=== PATIENT | female | born 1995 | race Caucasian/White ===

== ENCOUNTER 2022-03-08 01:18 | Emergency (ER) | payer MEDICAID, SELFPAY ==
[2022-03-08] VITALS (88 sets, daily range): BP systolic 98–118; BP diastolic 52–83; PULSE 55–88; RESP 12–30; TEMP 36.7; O2SAT 100; BMI 44.2
--- NOTE | 2022-03-08 00:45 | RT.EKG_ITS ---
APPROVED REPORT Exam: Resting ECG Reason for Exam: chest pain Patient Location: E HR:77 bpm ECG Measurements Heart Rate 77 AXIS TN 175 P -21 QRSd 102 QRS -19 QT 413 T 4 QTc 469 Conclusion Sinus rhythm...normal P axis, V-rate 60- 99 Low voltage, precordial leads...precordial leads <1.0mV Nonspecific T abnrm, anterolateral leads...T <-0.10mV, I aVL V2-V6 Physician: inverted t waves in anterior leads. no stemi
--- NOTE | 2022-03-08 01:09 | DI.CT_ITS ---
Exam(s) CT THORAX ABD/PEL CTA EXAM: CT THORAX ABD/PEL CTA CLINICAL HISTORY: hx AAA, and coarc. aorta, now chest pain/back pain. TECHNIQUE: Imaging Protocol: Axial computed tomography images with coronal and sagittal reformatted images were created and reviewed CONTRAST MATERIAL: Intravenous: Omnipaque 350 Contrast volume:100 ml Oral: None COMPARISON: No exams were available for comparison FINDINGS: CHEST: AORTA: The diameter of the ascending thoracic aorta is within normal limits, measuring 3.[address] of the aortic arch and descending thoracic aorta also within normal limits. No dissection or per icardial effusion. Incidentally noted is an aberrant right subclavian artery which is manifest as th e most distal vessel off the left-sided aortic arch and attains the right-side bypassing between the posterior aspect of the esophagus and anterior aspect of upper thoracic vertebral body. No significa nt stenosis nor aneurysm in this aberrant right subclavian artery. Descending thoracic aorta exhibits upper normal diameter. Diameter of the abdominal aorta is also no rmal and without atherosclerotic involvement. Aortic bifurcation appears unremarkable. No aneurysm nor significant stenosis evident in the iliac vessels nor in the common femoral arteries. Celiac and superior mesenteric arteries are nicely patent as is the inferior mesenteric artery. No s ignificant stenosis at the origin of the renal arteries nor along their course and there is no eviden ce of fibromuscular dysplasia of the renal arteries. LUNGS: Both lungs are clear. No infiltrates nor pleural effusions. No significant nodules.. MEDIASTINUM: There is no hilar nor mediastinal adenopathy. CARDIAC: There are sternotomy wires which appear to have been placed during childhood. Heart size is upper normal. There is no pericardial effusion. AORTA: See above discussion.There is no evidence of aortic dissection. ABDOMEN: There is no evidence of abdominal aortic aneurysm nor dissection.There is no aneurysmal dilatation of the common iliac arteries.The celiac and superior mesenteric arteries are patent. There is no ascites. LIVER: There are no focal hepatic lesions nor dilatation of intrahepatic ducts. GALLBLADDER/BILIARY: Slightly distended. No radiopaque gallstones noted. No pericholecystic fluid. CBD is not dilated. PANCREAS: No evidence of pancreatic mass nor dilatation of the pancreatic duct. SPLEEN: Spleen is not enlarged. There are no intrasplenic lesions. Splenic and portal veins are rodas nt. ADRENALS: There are no significant adrenal masses. KIDNEYS: No cysts evident. No calculi nor hydronephrosis. No solid renal masses. ABDOMINAL AORTA: The abdominal aorta is not enlarged. LYMPH NODES: There is no retroperitoneal nor para-aortic adenopathy. No obvious mesenteric masses. ABDOMINAL WALL: No evidence of significant anterior abdominal wall hernia. GI: There is no evidence of bowel obstruction, free air, nor abscess. PELVIS: LYMPH NODES: There is no intrapelvic nor inguinal adenopathy. GI: Appendix surgically absent.No evidence of sigmoid diverticulitis. URINARY BLADDER: No calculi nor masses evident REPRODUCTIVE: Uterus and adnexal regions appear age-appropriate. OSSEOUS: No significant osseous lesions. IMPRESSION: 1. There is an aberrant right subclavian artery noted. No other significant aortic findings. Diamet er of the ascending thoracic aorta is normal and there is no evidence of dissection in this patient w ho has had prior pediatric age cardiac surgery.. 2. Slight distension of the gallbladder noted. No obvious radiopaque calculi. If clinically indicat ed follow-up gallbladder ultrasound can be performed for added sensitivity. 3. The appendix is surgically absent. RADIATION DOSE DELIVERED: 1,361.09mGy.cm Total DLP DATA REPOSITORY: All CT scans at this facility are submitted to the National Radiology Data Registry (NRDR) Dose Index Registry (DIR) with the [employer] (ACR). RADIATION OPTIMIZATION: All CT scans at this facility use at least one of these dose optimization te chniques: automated exposure control; mA and/or kV adjustment per patient size (includes targeted exa ms where dose is matched to clinical indication); or iterative reconstruction.
[2022-03-08] MEDS: Omnipaque 350 MG/ML 100 ML BTL IJ (01:20)
[2022-03-08] MEDS: Ondansetron 4 MG/2 ML VIAL IVP (01:37)
[2022-03-08] MEDS: Normal Saline 500 ML IV (01:37)
[2022-03-08 01:43] LABS: ALT 22 U/L (14-59); AST 17 U/L (15-37); Albumin 3.9 g/dL (3.4-5.0); Alkaline Phosphatase 92 U/L (46-116); Anion Gap 9.4 mmol/L (3-11); BUN 13 mg/dL (7-18); Bilirubin, Total 0.5 mg/dL (0.2-1.0); CO2 24.6 mmol/L (21.0-32.0); CREATININE 0.9 mg/dL (0.55-1.02); Calcium 9.1 mg/dL (8.5-10.1); Chloride 103 mmol/L (98-107); Glucose 108 mg/dL (74-106); Lipase 134 U/L (73-393); NT-proBNP 48 pg/mL (<300); Potassium 3.5 mmol/L (3.5-5.1); Sodium 137 mmol/L (136-145); Total Protein 8.2 g/dL (6.4-8.2); Troponin I < 50 ng/L (<or=60)
[2022-03-08] MEDS: Normal Saline - Diluent 50 ML VIAL IJ (01:47)
[2022-03-08] MEDS: Normal Saline Flush 10 ML SYR IVP (01:47)
--- NOTE | 2022-03-08 01:48 | ED.GENADUL_ITS ---
Discharge Plan Discharge Details Chief Complaint: Chest Pain Primary Care Provider: Molly Streeter ED Provider: Fran Jara Home Meds and New Rx's Prescriptions: No Action No Known Home Meds Medical Decision Making This is a pleasant 26-year-old female with a past medical history of thoracic aortic aneurysm, aortic regurg due to bicuspid aortic valve, aortic root dilatation, coarctation of the aorta and VSD which were repaired at [facility] on the patient was a child, whose house is currently out of power and so she is visiting a friend. She presents [facility] for evaluation of chest pain. She states that about 2 hours prior to arrival she was awoken out of sleep with chest pain which she describes as a pressure and tightness like sensation going from her anterior breast all the way to her mid to lower back. She has been carrying her 1-year-old that is 40 pounds per the patient. She does admit to some tightness while breathing, and some worsening of pain with this. She denies having symptoms like this before. She denies any vomiting or diarrhea. She describes the pain as a 7 out of 10 at this time. No other complaints at this time. No other modifying factors. Physical exam demonstrates well-appearing female, peripheral pulses are +2 in all extremities. Vital signs are stable. Patient does not want anything for pain at this time. She does want something for nausea though. There may certainly be a musculoskeletal component with the stress and strain of caring her child around, however with her history there is certainly a strong concern for potential cardiac or aortic etiology. We will get a CTA, monitor closely and reassess. Patient did receive 325 of aspirin via EMS prior to arrival. 3:39 AM On reassessment patient is feeling better. She still has mild right lower abdominal pain. Troponin proBNP lipase white count electrolytes are all normal. Repeat exam continues to show mild right mid to lower quadrant abdominal pain and resolution of her chest and back pain. CT scan shows no evidence of dissection or aneurysm, however there is evidence of drainage pericholecystic stranding. Symptoms do not appear overly consistent with cholecystitis. No guarding or rebound, negative Guzman sign. Out of an abundance of precaution we will get an ultrasound of the right upper quadrant for further assessment of the gallbladder. No electroencephalographic technologist is on currently, however 1 can be called in in the morning. We will continue to monitor the patient here this evening. FINDINGS: VASCULATURE: Pulmonary arteries: Normal. No pulmonary emboli. Aorta: No aortic aneurysm. No aortic dissection. Celiac trunk and mesenteric arteries: No occlusion or significant stenosis. Renal arteries: No occlusion or significant stenosis. Right iliac arteries: No occlusion or significant stenosis. Left iliac arteries: No occlusion or significant stenosis. CHEST: Lungs: Unremarkable. No consolidation. No masses. Pleural spaces: Unremarkable. No pneumothorax. No pleural effusion. Heart: Unremarkable. No cardiomegaly. No pericardial effusion. ABDOMEN AND PELVIS: Liver: Suspect element of hepatic steatosis. Gallbladder and bile ducts: Trace pericholecystic stranding, recommend clinical exclusion of cholecystitis with sonogram for further evaluation as clinically warranted. Pancreas: Unremarkable. No mass. No ductal dilation. Spleen: Unremarkable. No splenomegaly. Adrenal glands: Unremarkable. No mass. Kidneys and ureters: Unremarkable. No solid mass. No hydronephrosis. Stomach and bowel: Unremarkable. No obstruction. No mucosal thickening. Appendix: No evidence of appendicitis. Intraperitoneal space: Unremarkable. No free air. No significant fluid collection. Urinary bladder: Unremarkable. No mass. Reproductive: Unremarkable as visualized. Lymph nodes: Unremarkable. No enlarged lymph nodes. Bones/joints: Unremarkable. No acute fracture. Soft tissues: Unremarkable. IMPRESSION: Trace pericholecystic stranding, recommend clinical exclusion of cholecystitis with sonogram for further evaluation as clinically warranted. Thank you for allowing us to participate in the care of your patient. Dictated and Authenticated by: Sabas Jay MD 03/08/2022 2:24 AM Eastern Time ([place] & [place]) HPI General Date/Time Provider Initiated Documentation: 03/08/22 01:44 . HPI Narrative: This is a pleasant 26-year-old female with a past medical history of thoracic aortic aneurysm, aortic regurg due to bicuspid aortic valve, aortic root dilatation, coarctation of the aorta and VSD which were repaired at [facility] on the patient was a child, whose house is currently out of power and so she is visiting a friend. She presents tonight for evaluation of chest pain. She states that about 2 hours prior to arrival she was awoken out of sleep with chest pain which she describes as a pressure and tightness like sensation going from her anterior breast all the way to her mid to lower back. She has been carrying her 1-year-old that is 40 pounds per the patient. She does admit to some tightness while breathing, and some worsening of pain with this. She denies having symptoms like this before. She denies any vomiting or diarrhea. She describes the pain as a 7 out of 10 at this time. No other complaints at this time. No other modifying factors. Related Data Home Medications Medication Instructions Recorded Confirmed Unknown [No Known Home Meds] 03/08/22 03/08/22 Allergies Allergy/AdvReac Type Severity Reaction Status Date / Time No Known Allergies Allergy Unverified 03/08/22 01:06 General Stated Complaint: Chest Pain DE: 2 Review of Systems All systems reviewed & are unremarkable except as noted in HPI and below PFSH Social History Smoking/Tobacco Use Status: Never Smoking risk assessment performed?: Yes Alcohol Intake: never Substance use type: does not use Do you feel safe at home: Yes Do you feel safe in your relationship?: Yes Exam Narrative Exam Narrative: 1.Const: Well-nourished, Well-developed, appearing stated age 2.Eyes: PERRL, no conjunctival injection, and symmetrical lids. 3.ENT: Atraumatic external nose and ears. Moist MM. Neck: Symmetric, trachea midline, No thyromegaly. 4.CVS: +S1/S2,Peripheral pulses 2+ and equal in all extremities. Brisk capillary refill in all extremities. 5.RESP: Unlabored respiratory effort. Clear to auscultation bilaterally. No wheezes rales or rhonchi 6.GI: Soft, Nontender/Nondistended, No hepatosplenomegaly. No guarding or rebound. 7.MSK: Normocephalic/Atraumatic, Extremities w/o deformity or ttp No cyanosis or clubbing, Normal movement of all extremities 8.Skin: Warm, Dry. No rashes or lesions. 9.Neuro: keg raiser II-XII grossly intact. Sensation grossly intact, no focal neurologic deficits. 10.Psych: (AAO) x3. Appropriate mood and affect Course Vital Signs Vital signs: Vital Signs Temperature 36.7 C 03/08/22 00:57 Pulse 80 03/08/22 00:57 Respiratory Rate 19 03/08/22 00:57 Pulse Oximetry 100 03/08/22 00:57 Temperature 36.7 C 03/08/22 00:57 Pulse 80 03/08/22 00:57 Respiratory Rate 16 03/08/22 01:09 Respiratory Effort 03/08/22 01:09 Respiratory Depth Normal 03/08/22 01:09 Respiratory Pattern Normal 03/08/22 01:09 Pulse Oximetry 100 03/08/22 00:57 Pain Level 7 03/08/22 00:57 Lab/Test Results Lab/Test Results: Laboratory Tests Range/Units 03/08/22 01:16 Sodium (136-145) mmol/L 137 Potassium (3.5-5.1) mmol/L 3.5 Chloride (98-107) mmol/L 103 Carbon Dioxide (21.0-32.0) mmol/L 24.6 Anion Gap (3-11) mmol/L 9.4 BUN (7-18) mg/dL 13 Creatinine (0.55-1.02) mg/dL 0.9 Est GFR (CKD-EPI 2020) (mL/min/1.73m2) 89.30 Glucose (74-106) mg/dL 108 H Calcium (8.5-10.1) mg/dL 9.1 Total Bilirubin (0.2-1.0) mg/dL 0.5 AST (15-37) U/L 17 ALT (14-59) U/L 22 Alkaline Phosphatase (46-116) U/L 92 Troponin I (<or=60) ng/L < 50 NT-Pro-B Natriuret Pep (<300) pg/mL 48 Total Protein (6.4-8.2) g/dL 8.2 Albumin (3.4-5.0) g/dL 3.9 Lipase (73-393) U/L 134
--- NOTE | 2022-03-08 02:25 | DI.VRAD_ITS ---
PROCEDURE INFORMATION: Exam: CTA Chest With Contrast CTA Abdomen and Pelvis With Contrast Exam date and time: 03/08/2022 1:34 AM Age: 26 years old Clinical indication: Precordial pain; Prior surgery; Surgery date: 6+ months; Surgery type: and removal of fallopian tubes; Patient HX: HX aaa, and coarc. Aorta, now chest pain/back pain TECHNIQUE: Imaging protocol: Computed tomographic angiography of the chest with contrast. Computed tomographic angiography of the abdomen and pelvis with contrast. 3D rendering (Not supervised by radiologist): MIP and/or 3D reconstructed images were created by the technologist. Radiation optimization: All CT scans at this facility use at least one of these dose optimization techniques: automated exposure control; mA and/or kV adjustment per patient size (includes targeted exams where dose is matched to clinical indication); or iterative reconstruction. Contrast material: OMNIPAQUE 350; Contrast volume: 100 ml; Contrast route: INTRAVENOUS (IV); COMPARISON: No relevant prior studies available. FINDINGS: VASCULATURE: Pulmonary arteries: Normal. No pulmonary emboli. Aorta: No aortic aneurysm. No aortic dissection. Celiac trunk and mesenteric arteries: No occlusion or significant stenosis. Renal arteries: No occlusion or significant stenosis. Right iliac arteries: No occlusion or significant stenosis. Left iliac arteries: No occlusion or significant stenosis. CHEST: Lungs: Unremarkable. No consolidation. No masses. Pleural spaces: Unremarkable. No pneumothorax. No pleural effusion. Heart: Unremarkable. No cardiomegaly. No pericardial effusion. ABDOMEN AND PELVIS: Liver: Suspect element of hepatic steatosis. Gallbladder and bile ducts: Trace pericholecystic stranding, recommend clinical exclusion of cholecystitis with sonogram for further evaluation as clinically warranted. Pancreas: Unremarkable. No mass. No ductal dilation. Spleen: Unremarkable. No splenomegaly. Adrenal glands: Unremarkable. No mass. Kidneys and ureters: Unremarkable. No solid mass. No hydronephrosis. Stomach and bowel: Unremarkable. No obstruction. No mucosal thickening. Appendix: No evidence of appendicitis. Intraperitoneal space: Unremarkable. No free air. No significant fluid collection. Urinary bladder: Unremarkable. No mass. Reproductive: Unremarkable as visualized. Lymph nodes: Unremarkable. No enlarged lymph nodes. Bones/joints: Unremarkable. No acute fracture. Soft tissues: Unremarkable. IMPRESSION: Trace pericholecystic stranding, recommend clinical exclusion of cholecystitis with sonogram for further evaluation as clinically warranted. Dictated and Authenticated by: Sabas Jay MD. Ordering:HEAVEN Peters MD
[2022-03-08 02:31] LABS: Bilirubin Negative (Negative); Blood Negative (Negative); Clarity Clear (Clear); Glucose Negative (Negative); Ketones Negative (Negative); Leukocyte Esterase Negative (Negative); Nitrite Negative (Negative); Urobilinogen 0.2 EU/dL (Up TO 0.2)
[2022-03-08 02:41] LABS: Bacteria Rare HPF (Negative); C & S Indicated? No; Crystals Negative HPF (Negative); Epithelial Cells Many HPF (Negative); Mucus Negative (Negative); RBC 0-2 HPF (0-2); WBC Negative HPF (0-5)
[2022-03-08] MEDS: Ketorolac 30 MG/ML VIAL IVP (03:30)
--- NOTE | 2022-03-08 03:30 | DI.US_ITS ---
Exam(s) US ABDOMEN LIMITED EXAM: US ABDOMEN LIMITED CLINICAL HISTORY: eval ruq for GB pathology TECHNIQUE: Ultrasound abdomen performed using standard protocol. COMPARISON: CT CT THORAX ABD/PEL CTA from 03/08/2022 FINDINGS: There is no ascites evident. LIVER: There are no hepatic lesions evident nor dilatation of intrahepatic ducts. GALLBLADDER/BILIARY: There are few echogenic foci within the gallbladder lumen which were not demonst rated to be mobile. Largest of these measures 4 millimeters. Gallbladder wall is slightly thickened . There is no pericholecystic fluid. The common hepatic duct isnot dilated, measuring 6mm at the level of krysten hepatis. PANCREAS: There is no evidence of pancreatic mass nor dilatation of the pancreatic duct. RIGHT KIDNEY:No evidence of solid mass, calculus, nor hydronephrosis. No cortical cysts evident. IMPRESSION: 1. Cholelithiasis. There are multiple small shadowing gallstones in the gallbladder lumen. Gallbla dder wall appears slightly thickened. There is no pericholecystic fluid. Common hepatic duct diamet er is upper normal. Patient was apparently not tender over the gallbladder during scanning today. 2. No other significant ultrasound findings in the right upper quadrant. 3. There is no ascites. DATA REPOSITORY:
[2022-03-08 04:04] LABS: Abs Immature Grans 0.04 10^3/uL (0.0-0.06); Absolute Basophil Count 0.03 10^3/uL (0.0-0.2); Absolute Eosinophil Count 0.44 10^3/uL (0.0-0.7); Absolute Lymphocyte Count 1.29 10^3/uL (1.2-3.4); Absolute Monocyte Count 0.61 10^3/uL (0.1-0.8); Basophils % 0.3; Eosinophils % 4.2; HCT 42.1 % (36.0-46.0); HGB 13.5 g/dL (11.2-15.7); Immature Grans % 0.4; Lymphocytes % 12.3; MCHC 32.1 % (32.0-36.0); MCV 84 fL (80-95); MPV 9.9 fL (8.0-11.0); Monocytes % 5.8; Platelet Count 323 10^3/uL (130-400); RDW 12.9 % (11.7-14.6); RDW-SD 39.4 fL; WBC 10.51 10^3/uL (4.4-10.8)
[2022-03-08 04:30] LABS: Troponin I < 50 ng/L (<or=60)
[2022-03-08] MEDS: ACETAMINOPHEN 1,000 MG/100 ML BTL 400 MG IVPB (07:16)
--- NOTE | 2022-03-08 08:47 | DI.VRAD_ITS ---
PROCEDURE INFORMATION: Exam: US Abdomen, Limited; Right Upper Quadrant Exam date and time: 03/08/2022 8:28 AM Age: 26 years old Clinical indication: Other: Back pain TECHNIQUE: Imaging protocol: Real time ultrasound of the abdomen with image documentation. Limited exam focused on the right upper quadrant. COMPARISON: CT THORAX ABD/PEL CTA 03/08/2022 1:34 AM FINDINGS: Liver: Normal. No masses. Liver length is 16 0.6 cm.There is hepatopetal flow in the main portal vein. Gallbladder: Gallbladder wall is thickened up to 5 mm and there are multiple stones in the gallbladder, but no gallbladder wall hyperemia. Biliary ducts: Common bile duct measures 6 mm. No stones. Pancreas: Visualized pancreas is unremarkable. Right kidney: Normal. No mass. No hydronephrosis. IMPRESSION: Cholelithiasis and gallbladder wall thickening, without other definite the a graphic findings of acute cholecystitis. Slightly prominent common bile duct without visualized obstructing stones. No other acute abnormality. Dictated and Authenticated by: Roz El MD. Ordering:HEAVEN Peters MD
--- NOTE | 2022-03-08 09:03 | ED.PROG_ITS ---
Date of service: 03/08/22 Time of Service: 09:05 Medical Decision Making There was signed out by Dr. Jara. Please see his documentation regarding initial ED presentation course. Plan at signout was to follow-up on abdominal ultrasound. CTA of the thorax was interpreted by radiology: IMPRESSION: Trace pericholecystic stranding, recommend clinical exclusion of cholecystitis with sonogram for further evaluation as clinically warranted. Ultrasound of the abdomen was interpreted by radiology: IMPRESSION: Cholelithiasis and gallbladder wall thickening, without other definite the a graphic findings of acute cholecystitis.? Slightly prominent common bile duct without visualized obstructing stones.? No other acute abnormality. Labs reviewed and LFTs normal. Lipase normal. Patient reassessed and abdominal exam is benign. She notes pain resolved. I called and spoke with surgeon on-call, Dr. Soliman, discussed ED presentation course. He evaluated the patient and recommends cholecystectomy. Anesthesia is not comfortable treating patient here given cardiac history. Patient was given Zosyn 4.5 g IV as recommended by Dr. Mckeon. -- I called [facility] transfer center to request transfer and this was kind due to lack of capacity to accept the patient. -- I then called [facility] transfer center to request transfer. Delay while waiting for return call. Dr. Aviles returned my call, on-call surgeon, discussed ED presentation and course, he will except the patient in transfer and requests I speak to the ED attending to accept. I spoke with Dr. Roe in the emergency department, again discussed ED presentation course, he will accept patient. We will arrange for transportation. Lab Data Lab results reviewed: Yes I reviewed the patient's lab results. Labs: Laboratory Tests Range/Units 03/08/22 03/08/22 03/08/22 01:16 01:16 02:25 WBC (4.4-10.8) 10^3/uL 10.51 RBC (3.93-5.22) 10^6/uL 5.00 Hgb (11.2-15.7) g/dL 13.5 Hct (36.0-46.0) % 42.1 MCV (80-95) fL 84 MCH (27.0-33.0) pg 27.0 MCHC (32.0-36.0) % 32.1 RDW (11.7-14.6) % 12.9 Plt Count (130-400) 10^3/uL 323 MPV (8.0-11.0) fL 9.9 Immature Gran % 0.4 Neutrophils % 77.0 Lymphocytes % 12.3 Monocytes % 5.8 Eosinophils % 4.2 Basophils % 0.3 Nucleated RBC % (0.0-0.3) % 0.0 Absolute Neutrophils (1.2-6.7) 10^3/uL 8.10 H Absolute Lymphocytes (1.2-3.4) 10^3/uL 1.29 Absolute Monocytes (0.1-0.8) 10^3/uL 0.61 Absolute Eosinophils (0.0-0.7) 10^3/uL 0.44 Absolute Basophils (0.0-0.2) 10^3/uL 0.03 Sodium (136-145) mmol/L 137 Potassium (3.5-5.1) mmol/L 3.5 Chloride (98-107) mmol/L 103 Carbon Dioxide (21.0-32.0) mmol/L 24.6 Anion Gap (3-11) mmol/L 9.4 BUN (7-18) mg/dL 13 Creatinine (0.55-1.02) mg/dL 0.9 Est GFR (CKD-EPI 2020) (mL/min/1.73m2) 89.30 Glucose (74-106) mg/dL 108 H Calcium (8.5-10.1) mg/dL 9.1 Total Bilirubin (0.2-1.0) mg/dL 0.5 AST (15-37) U/L 17 ALT (14-59) U/L 22 Alkaline Phosphatase (46-116) U/L 92 Troponin I (<or=60) ng/L < 50 NT-Pro-B Natriuret Pep (<300) pg/mL 48 Total Protein (6.4-8.2) g/dL 8.2 Albumin (3.4-5.0) g/dL 3.9 Lipase (73-393) U/L 134 Urine Color (Yellow) Yellow Urine Clarity (Clear) Clear Urine pH (5-8) 6.0 Ur Specific [place] (1.005-1.025) 1.010 Urine Protein (Negative) mg/dL Trace H Urine Ketones (Negative) mg/dL Negative Urine Blood (Negative) Negative Urine Nitrite (Negative) Negative Urine Bilirubin (Negative) Negative Urine Urobilinogen (Up TO 0.2) EU/dL 0.2 Ur Leukocyte Esterase (Negative) Negative Urine RBC (0-2) HPF 0-2 Urine WBC (0-5) HPF Negative Ur Epithelial Cells (Negative) HPF Many Urine Crystals (Negative) HPF Negative Urine Bacteria (Negative) HPF Rare Urine Mucus (Negative) Negative Ur Culture Indicated? No Urine Glucose (Negative) mg/dL Negative Range/Units 03/08/22 04:07 WBC (4.4-10.8) 10^3/uL RBC (3.93-5.22) 10^6/uL Hgb (11.2-15.7) g/dL Hct (36.0-46.0) % MCV (80-95) fL MCH (27.0-33.0) pg MCHC (32.0-36.0) % RDW (11.7-14.6) % Plt Count (130-400) 10^3/uL MPV (8.0-11.0) fL Immature Gran % Neutrophils % Lymphocytes % Monocytes % Eosinophils % Basophils % Nucleated RBC % (0.0-0.3) % Absolute Neutrophils (1.2-6.7) 10^3/uL Absolute Lymphocytes (1.2-3.4) 10^3/uL Absolute Monocytes (0.1-0.8) 10^3/uL Absolute Eosinophils (0.0-0.7) 10^3/uL Absolute Basophils (0.0-0.2) 10^3/uL Sodium (136-145) mmol/L Potassium (3.5-5.1) mmol/L Chloride (98-107) mmol/L Carbon Dioxide (21.0-32.0) mmol/L Anion Gap (3-11) mmol/L BUN (7-18) mg/dL Creatinine (0.55-1.02) mg/dL Est GFR (CKD-EPI 2020) (mL/min/1.73m2) Glucose (74-106) mg/dL Calcium (8.5-10.1) mg/dL Total Bilirubin (0.2-1.0) mg/dL AST (15-37) U/L ALT (14-59) U/L Alkaline Phosphatase (46-116) U/L Troponin I (<or=60) ng/L < 50 NT-Pro-B Natriuret Pep (<300) pg/mL Total Protein (6.4-8.2) g/dL Albumin (3.4-5.0) g/dL Lipase (73-393) U/L Urine Color (Yellow) Urine Clarity (Clear) Urine pH (5-8) Ur Specific [place] (1.005-1.025) Urine Protein (Negative) mg/dL Urine Ketones (Negative) mg/dL Urine Blood (Negative) Urine Nitrite (Negative) Urine Bilirubin (Negative) Urine Urobilinogen (Up TO 0.2) EU/dL Ur Leukocyte Esterase (Negative) Urine RBC (0-2) HPF Urine WBC (0-5) HPF Ur Epithelial Cells (Negative) HPF Urine Crystals (Negative) HPF Urine Bacteria (Negative) HPF Urine Mucus (Negative) Ur Culture Indicated? Urine Glucose (Negative) mg/dL Sign Out Sign Out Data: Sign Out Comment: Follow-up on ultrasound of gallbladder and reassessment. Last updated by Fran Jara DO at 03/08/22 07:46 Discharge Plan Disposition Patient Disposition: Transfer-Acute Inpatient Care Specific Acute Inpt Facility: [facility] Condition: Serious Discharge Details Clinical Impression: Cholelithiasis, Thickening of wall of gallbladder Primary Care Provider: Molly Streeter ED Provider: Keon Rivera Home Meds and New Rx's Prescriptions: No Action No Known Home Meds Discharge Instructions Referrals: Molly Streeter [Primary Care Provider] - Discharge Data Discharge Date/Time-TO BE ENTERED AT DEPARTURE: 03/08/22 15:16
--- NOTE | 2022-03-08 09:42 | W.SURGCON ---
Date of service: 03/08/22 Time of Service: 09:45 Assessment and Plan Assessment and plan (1) Cholecystitis: Status: Acute Assessment and plan: 26-year-old woman who incidentally has a complex, but stable and clinically irrelevant cardiac history who is having crescendo biliary colic in the setting of likely chronic cholecystitis at this point. She is hemodynamically stable and her lab work is normal and her abdominal exam is benign however the increasing frequency and severity of her attacks coupled with radiographic evidence of gallbladder inflammation(CT showing stranding and ultrasound showing gallbladder wall thickening and CBD dilation) all point towards the reality that she is passing gallstones on a regular basis as the explanation for her symptoms. This is a classic scenario of crescendo biliary colic and typical management strategies/recommendations for this are prompt/urgent laparoscopic cholecystectomy before this becomes a more complicated/emergent scenario with either severe acute cholecystitis or common bile duct obstruction. Sending her home with pain medication and antibiotics to plan for scheduled, elective procedure is well?documented in literature and in reality to actually result in recurrent ER admissions and surgery under less than ideal circumstances as the disease worsens. As such, it is my usual practice to recommend and perform surgery at this time. Considering the complex(albeit stable) cardiac history she has, I have asked anesthesia to come in and consult on the patient for risk stratification and assessment. This multi-disciplinary approach will allow us to decide the best management strategy for her and depending on our collaborative decision making, she may need to be transferred for surgery at a tertiary facility. I will defer to anesthesia consultation and their recommendations. Final thoughts are: Will be interesting if after her gallbladder is removed if her chronic chest and back discomfort that comes and goes randomly goes away completely because it may have been secondary to gallbladder disease all along. Overall plan/recommendations: Urgent Laparoscopic cholecystectomy History of Present Illness Narrative: The patient is a 26-year-old woman who comes in for moderate/severe back pain and pain underneath her right rib. This is not new for her and has happened about 5 or 6 times in the last 3 or 4 weeks. Prior to that it happened on an occasion once every couple of months. She does not attribute any inciting factors and this time she was in her sleep and it woke her up. She has never presented to the emergency department for this before however the difference this time was that this was the most severe it had ever been even though she recognized the pain. Historically these attacks of pain will always slowly go away and she says that the pain in her back usually takes about a day to go away. Again, because this was the most severe it has ever been she came to the emergency department for evaluation. She does have a history of chronic on/off chest discomfort and this has been an issue for her since she was a child as she had open heart surgery at the age of 2 days old. (Reportedly to repair coarctation of the aorta) Her verbal history she follows with cardiology every 6 months. She reports that everything has been stable from that perspective. Her last echo in the [facility] system is from 2-3 years ago showing an intact EF of 55%, mild?moderate aortic regurgitation, trace/mild mitral and tricuspid valve regurgitation. Dilated aortic root. She did recently have a stress test at [facility] that she self?reports was normal. She is due for routine/follow-up echo in 2022. Because of her history a CTA was performed which did not reveal any intrathoracic or obvious vascular problem. Stranding was seen around the gallbladder and a follow-up ultrasound was performed which demonstrated cholelithiasis as well as wall thickening(5mm) consistent radiographically with cholecystitis. Her common bile duct is mildly dilated at 6 mm. LFTs normal. Attack of pain was last night and at the bedside this morning she reports that all of the pain beneath her rib is gone but she still has the back pain. Medical history: Heart history as noted above and she is overweight Surgical history: Open heart surgery as noted above, laparoscopic appendectomy, C-sections x2 Social history: Not relevant Family history: Not relevant Allergies: None known Med: None reported PFSH All Active Problems (Updated 03/08/22 @ 10:25 by Akil Hernandez MD) Cholecystitis (Acute) Chest pain (Acute) Abdominal pain (Acute) Cholelithiasis (Acute) Thickening of wall of gallbladder (Acute) Social History Smoking/Tobacco Use Status: Never Smoking risk assessment performed?: Yes Alcohol Intake: never Substance use type: does not use Do you feel safe at home: Yes Do you feel safe in your relationship?: Yes Exam Narrative Exam Narrative: General: Nontoxic, comfortable and interactive. Unlabored breathing Neuro: Alert and oriented x3 Psych: Appropriate mood and affect, good insight and understanding into her condition Abdomen: The patient is overweight but her abdomen is soft, nondistended and grossly nontender. No appreciated Guzman sign on exam. Results Last Vital Signs Temp 98.1 F 03/08/22 00:57 Pulse 65 03/08/22 08:43 Resp 23 03/08/22 09:10 BP 102/71 03/08/22 08:43 Pulse Ox 100 03/08/22 00:57 Labs Result diagrams: 03/08/22 01:16 03/08/22 01:16 Labs: Laboratory Results - last 24 hr 03/08/22 03/08/22 03/08/22 01:16 01:16 02:25 WBC 10.51 RBC 5.00 Hgb 13.5 Hct 42.1 MCV 84 MCH 27.0 MCHC 32.1 RDW 12.9 Plt Count 323 MPV 9.9 Immature Gran % 0.4 Neutrophils % 77.0 Lymphocytes % 12.3 Monocytes % 5.8 Eosinophils % 4.2 Basophils % 0.3 Nucleated RBC % 0.0 Absolute Neutrophils 8.10 H Absolute Lymphocytes 1.29 Absolute Monocytes 0.61 Absolute Eosinophils 0.44 Absolute Basophils 0.03 Sodium 137 Potassium 3.5 Chloride 103 Carbon Dioxide 24.6 Anion Gap 9.4 BUN 13 Creatinine 0.9 Est GFR (CKD-EPI 2020) 89.30 Glucose 108 H Calcium 9.1 Total Bilirubin 0.5 AST 17 ALT 22 Alkaline Phosphatase 92 Troponin I < 50 NT-Pro-B Natriuret Pep 48 Total Protein 8.2 Albumin 3.9 Lipase 134 Urine Color Yellow Urine Clarity Clear Urine pH 6.0 Ur Specific [place] 1.010 Urine Protein Trace H Urine Ketones Negative Urine Blood Negative Urine Nitrite Negative Urine Bilirubin Negative Urine Urobilinogen 0.2 Ur Leukocyte Esterase Negative Urine RBC 0-2 Urine WBC Negative Ur Epithelial Cells Many Urine Crystals Negative Urine Bacteria Rare Urine Mucus Negative Ur Culture Indicated? No Urine Glucose Negative 03/08/22 04:07 WBC RBC Hgb Hct MCV MCH MCHC RDW Plt Count MPV Immature Gran % Neutrophils % Lymphocytes % Monocytes % Eosinophils % Basophils % Nucleated RBC % Absolute Neutrophils Absolute Lymphocytes Absolute Monocytes Absolute Eosinophils Absolute Basophils Sodium Potassium Chloride Carbon Dioxide Anion Gap BUN Creatinine Est GFR (CKD-EPI 2020) Glucose Calcium Total Bilirubin AST ALT Alkaline Phosphatase Troponin I < 50 NT-Pro-B Natriuret Pep Total Protein Albumin Lipase Urine Color Urine Clarity Urine pH Ur Specific [place] Urine Protein Urine Ketones Urine Blood Urine Nitrite Urine Bilirubin Urine Urobilinogen Ur Leukocyte Esterase Urine RBC Urine WBC Ur Epithelial Cells Urine Crystals Urine Bacteria Urine Mucus Ur Culture Indicated? Urine Glucose
[2022-03-08] MEDS: PIPERACILLIN/TAZO 4.5 GM in Normal Saline 100 ML IVPB (10:01)
--- NOTE | 2022-03-08 11:11 | W.ANESCON ---
General Date of Service Date of Service: 03/08/22 Reason for Consult Requesting Provider: Akil Hernandez How Consult Conducted:: Chart Review Reason for Consult:: Patient with cholecytitis per Lorna Hernandez. Dr. Hernandez reached out due to patients significant cardiac and cardiac surgical history and asked for anesthesia consultation. Consult Recommendation after Review:: Recommend this patient be transfered to a tertiary facility. Patient has significant pediatric cardiac surgical history, frequent chest pain, some LAD ischemia per 2019 Cardiac NM study, mild to moderate AR, EF 55%, possible PFO. BMI has elevated since previous studies and last from 39 to 44. I believe this patient will be better served at a facility with additional support and specialty services. Patient is agreeable to this plan. Discussed possibility of direct transfer to [facility] or a facility of her choice. All questions answered. Plan discussed with both Saadia Hernandez and Roger Rivera separately. Lorna Hernandez to go discuss next steps in care with Roger Rivera. Height: 5 ft 4 in Weight: 117 kg Body Mass Index (BMI): 44.2 Meds Allergies and Home Medications Allergies Allergy/AdvReac Type Severity Reaction Status Date / Time No Known Allergies Allergy Unverified 03/08/22 01:06 Home Medication Medication Instructions Recorded Unknown [No Known Home Meds] 03/08/22 Current Visit Medications: Current Medications Generic Name Dose Route Start Last Admin Trade Name Freq PRN Reason Stop Dose Admin Iohexol 100 ml 03/08/22 01:30 03/08/22 01:20 Omnipaque 350 Mg/Ml 100 Ml Btl IJ 04/07/22 23:59 100 ml DIRECTED [place] Administration Sodium Chloride 50 ml 03/08/22 02:00 03/08/22 01:47 Normal Saline - Diluent 50 Ml Vial IJ 50 ml .FOR DI USE [place] Administration Sodium Chloride 0 ml 03/08/22 01:47 03/08/22 01:47 Normal Saline Flush 10 Ml Syr IVP 10 ml PRN PRN Administration PFSH Active Problems Active Problems: Problem Status Onset Code Cholecystitis K81.9 Chest pain R07.9 Abdominal pain R10.9 Cholelithiasis K80.20 Thickening of wall of gallbladder K82.8 Tobacco Smoking/Tobacco Use Status: Never Alcohol Alcohol Intake: never Substance Use Substance use type: does not use Vital Signs & Lab Results Vital Signs Most Recent Vital Signs: Most Recent Vital Signs Temp Pulse Resp BP Pulse Ox 36.7 C 66 22 105/70 100 03/08/22 00:57 03/08/22 10:02 03/08/22 10:02 03/08/22 10:02 03/08/22 00:57 Point of Care Results Nursing Point of Care Results: No Data to Display Lab Results Result Diagrams: 03/08/22 01:16 03/08/22 01:16 Blood Type / Crossmatch: No Data to Display Complete Blood Count: White Blood Count 10.51 10^3/uL (4.4-10.8) 03/08/22 01:16 Red Blood Count 5.00 10^6/uL (3.93-5.22) 03/08/22 01:16 Hemoglobin 13.5 g/dL (11.2-15.7) 03/08/22 01:16 Hematocrit 42.1 % (36.0-46.0) 03/08/22 01:16 Platelet Count 323 10^3/uL (130-400) 03/08/22 01:16 Complete Metabolic Panel: Sodium 137 mmol/L (136-145) 03/08/22 01:16 Potassium 3.5 mmol/L (3.5-5.1) 03/08/22 01:16 Chloride 103 mmol/L (98-107) 03/08/22 01:16 Carbon Dioxide 24.6 mmol/L (21.0-32.0) 03/08/22 01:16 BUN 13 mg/dL (7-18) 03/08/22 01:16 Creatinine 0.9 mg/dL (0.55-1.02) 03/08/22 01:16 Est GFR (CKD-EPI 2020) 89.30 (mL/min/1.73m2) 03/08/22 01:16 Calcium 9.1 mg/dL (8.5-10.1) 03/08/22 01:16 Albumin 3.9 g/dL (3.4-5.0) 03/08/22 01:16 Glucose 108 mg/dL (74-106) H 03/08/22 01:16 Liver Function Panel: Alanine Aminotransferase (ALT/SGPT) 22 U/L (14-59) 03/08/22 01:16 Aspartate Amino Transf (AST/SGOT) 17 U/L (15-37) 03/08/22 01:16 Coagulation Panel: No Data to Display Cardiac Panel: Troponin I < 50 ng/L (<or=60) 03/08/22 NT-Pro-B Natriuret Pep 48 pg/mL (<300) 03/08/22 Arterial Blood Gas: No Data to Display Venous Blood Gas: No Data to Display Pancreas Panel: Lipase 134 U/L (73-393) 03/08/22 01:16 Thyroid Panel: No Data to Display Infectious Disease: No Data to Display Blood Cultures: No Data to Display Toxicology Panel: No Data to Display Panel: No Data to Display Imaging and Studies Imaging and Studies EKG Summary: EKG PATIENT NAME: Maggy Alanis #: [id number] ORDERING PROVIDER: Fran Jara #: [id number] PRIMARY CARE PROVIDER:ALYSON FREEMAN MD DATE/TIME OF SERVICE: 03/08/22 0105 : 1995PERFORMING LOCATION: ER APPROVED REPORT Exam: Resting ECG Reason for Exam: chest pain Patient Location: E HR:77 bpm ECG Measurements Heart Rate 77 AXIS NH 175 P -21 QRSd 102 QRS -19 QT 413 T4 QTc 469 Conclusion Sinus rhythm...normal P axis, V-rate 60- 99 Low voltage, precordial leads...precordial leads <1.0mV Nonspecific T abnrm, anterolateral leads...T <-0.10mV, I aVL V2-V6 Echocardiogram Summary: Reviewed 2019 Echocardiogram in [facility]. Please review original record. LVEF 50-55% RV global systolic function: low normal. AR mild-moderate MR trace TR mild Severe dilation of the aortic root at 5 cm
== END 2022-03-08 15:16 | disposition short-term general hospital (02) ==
PROVIDERS: Student in an Organized Health Care Education/Training Program; Emergency Provider Student in an Organized Health Care Education/Training Program; PCP Nurse Practitioner Family
DX: K80.20 Calculus of gallbladder without cholecystitis without obstruction (principal); K82.8 Other specified diseases of gallbladder
CPT/HCPCS: 36415; 71275; 80053; 83690; 93005; 96361; 96365; 96375; 99285; 74174; 76705; 81003; 81015; 83880; 84484; 85025; 93010; J0131; J1885; J2405; J2543; J3490